=== PATIENT | male | born 1990 | race African-American/Black ===

== ENCOUNTER 2019-05-28 12:01 | Emergency (ER) | payer OTHER ==
[2019-05-28 12:09] VITALS: BP 103/64; PULSE 98; TEMP 98.4; BMI 23.1
--- NOTE | 2019-05-28 12:43 | PDOC ---
History of Present Illness - General Chief Complaint: Injury Stated Complaint: HIT IN THE NOSE Time Seen by Provider: 05/28/19 12:21 History Source: Patient Exam Limitations: No Limitations Past History - Past Medical History Allergies/Adverse Reactions: Allergies Allergy/AdvReac Type Severity Reaction Status Date / Time No Known Allergies Allergy Verified 05/28/19 12:09 Home Medications: Ambulatory Orders NK [No Known Home Medication] 05/31/15 COPD: No - Psycho Social/Smoking Cessation Hx Smoking History: Never smoked Information on smoking cessation initiated: No Hx Alcohol Use: No Drug/Substance Use Hx: No Substance Use Type: None *Physical Exam - Vital Signs Last Vital Signs Temp Pulse Resp BP Pulse Ox 98.4 F 98 H 18 103/64 98 05/28/19 12:04 05/28/19 12:04 05/28/19 12:04 05/28/19 12:04 05/28/19 12:04 - Physical Exam General Appearance: No: Apparent Distress HEENT: positive: EOMI, ANTONI, Pharynx Normal, Other (+nasal deformity, 2 abrasions along anterior aspect of nose, +epistaxis from L nare, no septal hematoma noted) Neurologic: positive: Alert, Normal Mood/Affect Medical Decision Making - Medical Decision Making 29 y/o M with no sig pmh presents with nose injury s/p getting elbowed in nose while playing basketball today. Denies other trauma. +bleeding from nose, which has decreased with pressure. Denies other trauma, eye pain, pain on eye movement , vomiting, other complaints Likely nasal fracture Superficial abrasions closed with dermabond given slight oozing from site despite pressure Bleeding controlled with pressure and ice No evidence of septal hematoma on exam Will refer to ENT 05/28/19 12:43 Discharge - Discharge Information Problems reviewed: Yes Clinical Impression/Diagnosis: Nasal fracture Qualifiers: Encounter type: initial encounter Fracture type: closed Qualified Code(s): S02.2XXA - Fracture of nasal bones, initial encounter for closed fracture Condition: Stable Disposition: HOME - Admission No - Additional Discharge Information Prescription Drug Monitoring Program (I-STOP) results: I-STOP not reviewed - Follow up/Referral Referrals: Mitchel Peck MD [Primary Care Provider] - Derick Chacon MD [Staff Physician] - 2 Days - Patient Discharge Instructions Patient Printed Discharge Instructions: DI for Nose Fracture, DI for Laceration Repair With Dermabond Additional Instructions: Thank you for choosing [facility]. It was a pleasure taking care of you. Avoid blowing nose Apply ice over site of swelling If feeling congested, you may use normal saline spray if needed You were referred to ENT doctor for further evaluation - please follow-up in 2- 3 days The dermabond will peel over itself. Return to the Emergency Department if your symptoms worsen or persist or have other concerning symptoms. - Post Discharge Activity
== END 2019-05-28 13:05 | disposition home or self-care (01) ==
LOC: JERFT 12:01
DX: S02.2XXA Fracture of nasal bones, initial encounter for closed fracture (principal); W50.0XXA Accidental hit or strike by another person, initial encounter; Y93.67 Activity, basketball; Y92.89 Other specified places as the place of occurrence of the external cause
CPT/HCPCS: 99281-25